=== PATIENT | female | born 1950 | race African-American/Black ===

== ENCOUNTER 2018-09-06 09:19 | Day surgery (SDC) | payer OTHER ==
[~2018-09-06 09:19] MED LIST: KETOROLAC TROMETHAMINE 0.45% 4 DROP/0.4 ML DROPERETTE OD PRN; MIDAZOLAM 2 MG/2 ML INJ ONE
[2018-09-06] MEDS: TROPICAMIDE 1% OPH SOLN 3 ML OD PRN ×3 (10:05→10:25)
[2018-09-06] MEDS: BESIFLOXACIN HCL 0.6% OPH SUSP 5 ML BOTTLE OD PRN ×4 (10:05→10:45)
[2018-09-06] MEDS: TETRACAINE HCL 0.5% OPH SOLN 0.6 ML DROPERETTE OD PRN ×4 (10:05→10:30)
[2018-09-06] MEDS: CYCLOPENTOLATE 0.2%/PHENYLEPHRINE 1% OPH SOLN 2 ML OD PRN ×3 (10:05→10:25)
[2018-09-06] MEDS: CHONDR SU A NA/HYALUR INTRAOC KIT (SURGICARE) ONE ×2 (10:37)
[2018-09-06] MEDS: EPINEPHRINE INJ/PF 1 MG/1 ML AMPULE ONE ×2 (10:37)
[2018-09-06] MEDS: LIDOCAINE 1% INJ-PF (10 MG/ML) 30 ML SDV ONE ×2 (10:37)
[2018-09-06] MEDS: TOBRAMYCIN SULFATE/DEXAMETH OPH OINTMENT 3.5 GM ONE ×2 (10:45)
== END 2018-09-06 11:46 | disposition home or self-care (01) ==
LOC: SC 09:19
PROVIDERS: ATTEND Ophthalmology
DX: H25.11 Age-related nuclear cataract, right eye (principal); K21.9 Gastro-esophageal reflux disease without esophagitis; Z79.899 Other long term (current) drug therapy; Z87.891 Personal history of nicotine dependence; Z88.5 Allergy status to narcotic agent
CPT/HCPCS: 66984; V2632; J2250; J3490 ×3; J0171; 142

== ENCOUNTER 2018-09-20 07:25 | Day surgery (SDC) | payer OTHER ==
[~2018-09-20 07:25] MED LIST changes: +CHONDR SU A NA/HYALUR INTRAOC KIT (SURGICARE) ONE; +EPINEPHRINE INJ/PF 1 MG/1 ML AMPULE ONE; -KETOROLAC TROMETHAMINE 0.45% 4 DROP/0.4 ML DROPERETTE OD PRN; +KETOROLAC TROMETHAMINE 0.45% 4 DROP/0.4 ML DROPERETTE OS PRN; +LIDOCAINE 1% INJ-PF (10 MG/ML) 30 ML SDV ONE; -MIDAZOLAM 2 MG/2 ML INJ ONE
[2018-09-20] MEDS: BESIFLOXACIN HCL 0.6% OPH SUSP 5 ML BOTTLE OS PRN ×4 (07:47→08:35)
[2018-09-20] MEDS: CYCLOPENTOLATE 0.2%/PHENYLEPHRINE 1% OPH SOLN 2 ML OS PRN ×3 (07:47→08:08)
[2018-09-20] MEDS: TROPICAMIDE 1% OPH SOLN 3 ML OS PRN ×3 (07:47→08:08)
[2018-09-20] MEDS: TETRACAINE HCL 0.5% OPH SOLN 0.6 ML DROPERETTE OS PRN ×3 (07:50→08:20)
[2018-09-20] MEDS ORDERED: MIDAZOLAM 2 MG/2 ML INJ ONE (08:16)
[2018-09-20] MEDS: TOBRAMYCIN SULFATE/DEXAMETH OPH OINTMENT 3.5 GM ONE ×2 (08:28→08:35)
== END 2018-09-20 09:11 | disposition home or self-care (01) ==
LOC: SC 07:25
PROVIDERS: ATTEND Ophthalmology
DX: H25.12 Age-related nuclear cataract, left eye (principal); Z98.41 Cataract extraction status, right eye; K21.9 Gastro-esophageal reflux disease without esophagitis; Z79.899 Other long term (current) drug therapy; Z87.891 Personal history of nicotine dependence; Z88.5 Allergy status to narcotic agent
CPT/HCPCS: 66984; V2632; J2250; J3490 ×3; J0171; 142

== ENCOUNTER 2018-10-03 09:08 | Emergency (ER) | payer OTHER, MEDICARE ==
[2018-10-03] MEDS ORDERED: ONDANSETRON 4 MG TAB.RAPDIS PO ONE (09:50)
--- NOTE | 2018-10-03 09:52 | ER Document Report ---
ED Medical Screen (RME) - General Chief Complaint: GI Bleeding Stated Complaint: ABDOMINAL PAIN, DIARRHEA Time Seen by Provider: 10/03/18 09:42 Primary Care Provider: MIC ALBERTO [Primary Care Provider] - Follow up as needed Mode of Arrival: Ambulatory Information source: Patient Notes: Patient presents emergency department with complaints of abdominal cramps whenever she eats followed by bowel movements for the past 4 days. Patient describes her stools as soft not as diarrhea. Patient reports she has been drinking water. Patient denies past medical history of this. Denies chronic illnesses such as IBS or Crohn's. Patient does have a history of reflux. Denies fever vomiting reports nausea. I have greeted and performed a rapid initial assessment of this patient. A comprehensive ED assessment and evaluation of the patient, analysis of test results and completion of the medical decision making process will be conducted by additional ED providers. Dictation of this chart was performed using voice recognition software; therefore, there may be some unintended grammatical errors. TRAVEL OUTSIDE OF THE [place] IN LAST 30 DAYS: No - Related Data Allergies/Adverse Reactions: codeine Adverse Reaction (Verified 09/20/18 07:54) Nausea Past Medical History - Social History Chew tobacco use (# tins/day): No Frequency of alcohol use: None Drug Abuse: None - Past Medical History Cardiac Medical History: Denies: Hx Heart Attack, Hx Hypertension Pulmonary Medical History: Denies: Hx Asthma Neurological Medical History: Denies: Hx Cerebrovascular Accident, Hx Seizures Renal/ Medical History: Denies: Hx Peritoneal Dialysis GI Medical History: Denies: Hx Hepatitis, Hx Hiatal Hernia, Hx Ulcer Infectious Medical History: Denies: Hx Hepatitis Past Surgical History: Denies: Hx Mastectomy, Hx Open Heart Surgery, Hx Pacemaker Physical Exam - Vital signs Vitals: Temp Pulse Resp BP Pulse Ox 98.2 F 52 L 16 144/75 H 98 10/03/18 09:15 10/03/18 09:15 10/03/18 09:15 10/03/18 09:15 10/03/18 09:15 Course - Vital Signs Vital signs: Temp Pulse Resp BP Pulse Ox 98.2 F 52 L 16 144/75 H 98 10/03/18 09:15 10/03/18 09:15 10/03/18 09:15 10/03/18 09:15 10/03/18 09:15 Doctor's Discharge - Discharge Referrals: [facility] [Primary [facility]] - Follow up as needed
[2018-10-03 10:23] LABS: HEMATOCRIT 41.8 % (36.0-47.0); HEMOGLOBIN 13.8 g/dL (12.0-15.5); MEAN CORPUSCULAR HEMOGLOBIN 29.2 pg (27.0-33.4); MEAN CORPUSCULAR HGB CONC 32.9 g/dL (32.0-36.0); MEAN CORPUSCULAR VOLUME 89 fl (80-97); PLATELET COUNT 251 10^3/uL (150-450); RED BLOOD COUNT 4.71 10^6/uL (3.72-5.28); WHITE BLOOD COUNT 4.9 10^3/uL (4.0-10.5)
[2018-10-03 10:27] LABS: APPEARANCE,URINE SLIGHTLY-CLOUDY; BILIRUBIN,URINE NEGATIVE (NEGATIVE); COLOR,URINE STRAW; GLUCOSE, URINE NEGATIVE (NEGATIVE); KETONES,URINE NEGATIVE (NEGATIVE); LEUKOCYTE ESTERASE,URINE SMALL (NEGATIVE); NITRITE,URINE NEGATIVE (NEGATIVE); PROTEIN,URINE NEGATIVE (NEGATIVE); URINE SPECIFIC GRAVITY 1.004; UROBILINOGEN,URINE NEGATIVE mg/dL (<2.0)
[2018-10-03 10:31] LABS: ALANINE AMINOTRANSFERASE 16 U/L (9-52); ALBUMIN 4.5 g/dL (3.5-5.0); ALKALINE PHOSPHATASE 60 U/L (38-126); ANION GAP 7 (5-19); ASPARTATE AMINO TRANSFERASE 22 U/L (14-36); BILIRUBIN,DIRECT 0.2 mg/dL (0.0-0.4); BILIRUBIN,TOTAL 0.7 mg/dL (0.2-1.3); BLOOD UREA NITROGEN 5 mg/dL (7-20); CALCIUM 10.3 mg/dL (8.4-10.2); CARBON DIOXIDE 28 mmol/L (22-30); CHLORIDE 111 mmol/L (98-107); GLUCOSE 99 mg/dL (75-110); POTASSIUM 4.6 mmol/L (3.6-5.0); TOTAL PROTEIN 7.3 g/dL (6.3-8.2)
[2018-10-03 10:49] LABS: ABSOLUTE LYMPHOCYTES# (MANUAL) 1.7 10^3/uL (0.5-4.7); ABSOLUTE MONOCYTES # (MANUAL) 0.2 10^3/uL (0.1-1.4); ABSOLUTE NEUTROPHILS# (MANUAL) 2.7 10^3/uL (1.7-8.2); BAND NEUTROPHILS % (MANUAL) 1 % (3-5); BASOPHILS % (MANUAL) 0 % (0-2); EOSINOPHILS % (MANUAL) 5 % (0-6); LYMPHOCYTES % (MANUAL) 35 % (13-45); MONOCYTES % (MANUAL) 5 % (3-13); SEGMENTED NEUTROPHILS % (MAN) 54 % (42-78); TOTAL CELLS COUNTED 100
[2018-10-03 10:50] LABS: RBC MORPHOLOGY COMMENT NORMO-CYTIC/CHROMIC
[2018-10-03 11:19] LABS: PLATELET COMMENT ADEQUATE
--- NOTE | 2018-10-03 14:17 | ER Document Report ---
ED General - General Chief Complaint: GI Bleeding Stated Complaint: ABDOMINAL PAIN, DIARRHEA Time Seen by Provider: 10/03/18 09:42 Primary Care Provider: DOLLY,MIC [Primary Care Provider] - Follow up as needed Mode of Arrival: Ambulatory Notes: Very pleasant 68-year-old presents to the emergency department with chief complaint of abdominal pain. Patient states she is been having abdominal pain for the last couple of days. She denies nausea or diarrhea, denies vomiting, denies headache. She denies any urinary symptoms. Denies headache, fever or chills, weakness, shortness of breath or chest pain. TRAVEL OUTSIDE OF THE [place] IN LAST 30 DAYS: No - Related Data Allergies/Adverse Reactions: codeine Adverse Reaction (Verified 10/03/18 10:26) Nausea Past Medical History - General Information source: Patient - Social History Smoking Status: Former Smoker Chew tobacco use (# tins/day): No Frequency of alcohol use: None Drug Abuse: None Family History: None Patient has suicidal ideation: No Patient has homicidal ideation: No - Past Medical History Cardiac Medical History: Reports: Hx Hypercholesterolemia Denies: Hx Heart Attack, Hx Hypertension Pulmonary Medical History: Denies: Hx Asthma Neurological Medical History: Denies: Hx Cerebrovascular Accident, Hx Seizures Renal/ Medical History: Denies: Hx Peritoneal Dialysis GI Medical History: Denies: Hx Hepatitis, Hx Hiatal Hernia, Hx Ulcer Infectious Medical History: Denies: Hx Hepatitis Past Surgical History: Denies: Hx Mastectomy, Hx Open Heart Surgery, Hx Pacemaker Review of Systems - Review of Systems Constitutional: See HPI EENT: No symptoms reported Cardiovascular: See HPI Respiratory: See HPI Gastrointestinal: See HPI Genitourinary: See HPI Female Genitourinary: No symptoms reported Musculoskeletal: No symptoms reported Skin: No symptoms reported Hematologic/Lymphatic: No symptoms reported Neurological/Psychological: No symptoms reported Physical Exam - Vital signs Vitals: Temp Pulse Resp BP Pulse Ox 98.2 F 52 L 16 144/75 H 98 10/03/18 09:15 10/03/18 09:15 10/03/18 09:15 10/03/18 09:15 10/03/18 09:15 - Notes Notes: PHYSICAL EXAMINATION: Reviewed vital signs and charting by RN GENERAL: Alert, interacts well. No acute distress. HEAD: Normocephalic, atraumatic. EYES: Pupils equal, round, and reactive to light. Extraocular movements intact. ENT: Oral mucosa moist, tongue midline. NECK: Full range of motion. Supple. Trachea midline. LUNGS: Clear to auscultation bilaterally, no wheezes, rales, or rhonchi. No respiratory distress. HEART: Regular rate and rhythm. No murmur ABDOMEN: soft, non-tender. No distention. Bowel sounds present EXTREMITIES: Moves all 4 extremities spontaneously. No edema, No cyanosis. PSYCH: Normal affect, normal mood. SKIN: Warm, dry, normal turgor. No rashes or lesions noted. Course - Re-evaluation Re-evalutation: 10/03/18 14:17 Well-appearing presents with abdominal pain. Lab work was all within normal limits. Urinalysis was borderline for urinary tract infection with small leuk esterase, 9 WBCs, and not contaminated. I did write the patient for prescription for Keflex. With the urine for culture and if it is positive she will get a call and can initiate the prescription. I told her if she does not get a call the next 72 to 96 hours then to discard the prescription. She is stable for discharge. - Vital Signs Vital signs: Temp Pulse Resp BP Pulse Ox 98.6 F 56 L 17 139/81 H 99 10/03/18 14:50 10/03/18 14:50 10/03/18 14:50 10/03/18 14:50 10/03/18 14:50 - Laboratory Result Diagrams: 10/03/18 10:10 10/03/18 10:10 Laboratory results interpreted by me: 10/03/18 10/03/18 10/03/18 10:10 10:10 10:10 Band Neutrophils % 1 L Sodium 146.0 H Chloride 111 H BUN 5 L Calcium 10.3 H Ur Leukocyte Esterase SMALL H Discharge - Discharge Clinical Impression: Abdominal pain Qualifiers: Abdominal location: unspecified location Qualified Code(s): R10.9 - Unspecified abdominal pain Urinary tract infection Qualifiers: Urinary tract infection type: acute cystitis Hematuria presence: without hematuria Qualified Code(s): N30.00 - Acute cystitis without hematuria Condition: Good Disposition: HOME, SELF-CARE Additional Instructions: You have been seen in the Emergency Department (ED) for abdominal pain. Your evaluation did not identify a clear cause of your symptoms but was generally reassuring. But, your urinalysis did show the signs of an early urinary tract infection. This could potentially cause the symptoms you are having and it is reasonable to start you on an antibiotic for that. It is called Keflex 500 mg and you could take it 2 times per day for 7 days. Please take the entire course. Please follow up with your doctor as soon as possible regarding today's emergent visit and the symptoms that are bothering you. Return to the ED if your abdominal pain worsens or fails to improve, you develop bloody vomiting, bloody diarrhea, you are unable to tolerate fluids due to vomiting, fever greater than 101, or other symptoms that concern you. Prescriptions: Cephalexin Monohydrate [Keflex 500 mg Capsule] 500 mg PO QID #14 capsule Referrals: [facility] [Primary Care Provider] - Follow up as needed
[2018-10-03 14:53] VITALS: BP 139/81
== END 2018-10-03 14:53 | disposition home or self-care (01) ==
LOC: ER 09:08
DX: N30.00 Acute cystitis without hematuria (principal); R10.9 Unspecified abdominal pain; E78.00 Pure hypercholesterolemia, unspecified; Z88.6 Allergy status to analgesic agent
CPT/HCPCS: 99284; 36415; 83690; 85025; 80053; 81001; S0119